=== PATIENT | male | born 1970 | race Caucasian/White ===

== ENCOUNTER 2016-09-09 04:56 | Emergency (ER) | payer OTHER ==
[~2016-09-09] VITALS: Ht 180.3 cm; Wt 82.2 kg
[2016-09-09 05:50] LABS: HEMATOCRIT 52.6 % (38.0-50.0); MCH 31.4 PG (29.0-34.0); MCHC 34.6 G/DL (30.0-36.0); MCV 90.7 FL (86-99); MEAN PLAT.VOLUME 8.2 uM^3 (9.0-12.4); PLATELET COUNT 257 K/uL (156-360); RBC DIS.WIDTH-CV 12.9 % (11.8-14.6); RBC DIS.WIDTH-SD 43.3 % (39-53); WHITE BLOOD COUNT 13.9 K/uL (4.1-10.2)
[2016-09-09 06:03] LABS: CHLORIDE 100 mEq/L (99-109); POTASSIUM 3.8 mEq/L (3.7-5.4)
[2016-09-09 06:04] LABS: SODIUM 137 mEq/L (136-147)
[2016-09-09 06:06] LABS: GLUCOSE 123 mg/dL (70-99)
[2016-09-09 06:07] LABS: ANION GAP 10 MEQ/L (2-14)
[2016-09-09 06:08] LABS: TOTAL BILIRUBIN 0.5 mg/dL (0.0-1.0)
[2016-09-09 06:09] LABS: ALKALINE PHOSPHATASE 106 IU/L (3-129); GFR ESTIMATE (CALCULATED) > 59 mL/min/
[2016-09-09 06:11] LABS: UREA NITROGEN (BUN) 10 mg/dL (9-23)
[2016-09-09 06:13] LABS: LIPASE 14 U/L (1.0-51.0)
[2016-09-09 06:53] LABS: ADD MIUA? NO; BILIRUBIN NEGATIVE; BLOOD NEGATIVE; COLOR STRAW ((YELLOW)); GLUCOSE (STRIP) NEGATIVE; KETONES NEGATIVE; LEUKOCYTES NEGATIVE; NITRITE NEGATIVE; PROTEIN (STRIP) NEGATIVE; SPECIFIC GRAVITY 1.008 (1.000-1.030); UCUL ADDED? NO; UROBILINOGEN 0.2 MG/DL (0.2-1.0)
[2016-09-09] MEDS ORDERED: NORCO 5/3251 TABLET PO (06:54)
[2016-09-09] MEDS ORDERED: AUGMENTIN875 MG PO (06:54)
[2016-09-09 07:13] VITALS: BP 126/73
== END 2016-09-09 07:14 | disposition home or self-care (01) ==
LOC: EME 04:56
DX: K52.9 Noninfective gastroenteritis and colitis, unspecified (principal); R10.31 Right lower quadrant pain; F17.200 Nicotine dependence, unspecified, uncomplicated
CPT/HCPCS: 74177; 80053; 81003; 83690; 85027; 99281; 99285; J2405; J3010; J7030